=== PATIENT | male | born 1985 | race African-American/Black ===

== ENCOUNTER 2018-11-19 07:30 | Emergency (ER) | payer SELFPAY ==
[2018-11-19] MEDS ORDERED: Ketorolac Tromethamine 30 MG/ML VIAL ONE (07:43)
== END 2018-11-19 08:05 | disposition home or self-care (01) ==
LOC: ERS 07:30
DX: K08.89 Other specified disorders of teeth and supporting structures (principal); F17.210 Nicotine dependence, cigarettes, uncomplicated
CPT/HCPCS: 96372; J1885